=== PATIENT | male | born 1960 | race Caucasian/White ===

== ENCOUNTER 2017-01-27 09:15 | Emergency (ER) | payer OTHER ==
[~2017-01-27] VITALS: Ht 170.2 cm; Wt 63.0 kg
[2017-01-27 09:25] VITALS: BP 122/75
[2017-01-27 09:26] LABS: GLUCOSE,POINT OF CARE 133 MG/DL (70-110)
== END 2017-01-27 10:59 | disposition left against medical advice (07) ==
LOC: EMS 09:17
DX: T40.1X1A Poisoning by heroin, accidental (unintentional), initial encounter (principal); Y92.89 Other specified places as the place of occurrence of the external cause
CPT/HCPCS: 82962; 99283

== ENCOUNTER 2018-08-08 13:46 | Emergency (ER) | payer SELFPAY ==
[~2018-08-08] VITALS: Ht 177.8 cm; Wt 81.0 kg
[2018-08-08] MEDS ORDERED: IBUPROFEN 800 MG TABLET PO ONE (15:30)
[2018-08-08] MEDS ORDERED: CeFAZolin 1 GM/DEXTROSE 50 ML IV ONE (15:30)
[2018-08-08 16:27] VITALS: BP 122/62
== END 2018-08-08 16:36 | disposition home or self-care (01) ==
LOC: EMS 13:47
DX: L02.416 Cutaneous abscess of left lower limb (principal); L03.116 Cellulitis of left lower limb; F15.10 Other stimulant abuse, uncomplicated; F11.90 Opioid use, unspecified, uncomplicated
CPT/HCPCS: 96365; 99284; J0690